=== PATIENT | male | born 1990 | race Caucasian/White ===

== ENCOUNTER 2025-03-07 11:46 | Emergency (ER) | payer OTHER, SELFPAY ==
[2025-03-07 11:55] VITALS: BP 132/70; PULSE 74; RESP 16; TEMP 36.5; O2SAT 96; BMI 28.1
--- NOTE | 2025-03-07 12:15 | ED.HEATRA ---
HPI - Head Injury <Adelia Cortez PA-C - Last Filed: 03/07/25 15:36> General Chief complaint: Head Injury Stated complaint: Head Injury, Dizzyness Time Seen by Provider: 03/07/25 12:08 Source: patient Mode of arrival: Ambulatory History of Present Illness HPI Narrative: This is a 34-year-old male presenting with concern for head injury. Patient states he was playing with his 3-year-old son and was using the monkey bars at 11 a.m. this morning. He was wearing a baseball cap and was swinging up to a platform that his son was on his arms were in front of him holding a bar and he did not realize there was another bar in between his head in the bar he was holding. As he was swinging he hit the top and front his head really hard. He states that he thought he saw black for just a second and immediately dropped to the ground but had no loss of consciousness and was alert as he was dropping to the ground and landed on the ground. He said that he felt okay but decided to go home and rest. Then when he was at home he felt what he describes as a swimmy sensation in his head with some pressure behind his ears and a pressure feeling in the front of his upper nose. 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 He states he has not had any difficulty walking, difficulty with coordination, he has not had any vomiting or vision change he does not feel that his eyes are sensitive to light. His swimming sensation/dizzy sensation did not persist. He denies a headache. He does state that he had multiple moderate concussions when he was younger due to playing football. Denies numbness or tingling of the extremties and also denies neck pain. Related Data Allergies Allergy/AdvReac Type Severity Reaction Status Date / Time No Known Drug Allergies Allergy Verified 03/07/25 11:56 Review of Systems <Adelia Cortez PA-C - Last Filed: 03/07/25 15:36> Review of Systems Narrative: See HPI Patient History <Adelia Cortez PA-C - Last Filed: 03/07/25 15:36> Social History Smoking Status: Never smoker Smoking Status: Never smoker Exam <Adelia Cortez PA-C - Last Filed: 03/07/25 15:36> Narrative Exam Narrative: GENERAL: 34 year old patient appears stated age. Well-developed patient, in mild distress. HEAD: There are erythematous abrasion to the crown anteriorly just behind the frontal bone. Slightly tender with very mild swelling present. Otherwise the head is Atraumatic. Normocephalic. EYES: Pupils equal round and reactive. Extraocular motions intact. No scleral icterus. No injection or drainage. ENT: Nose without bleeding, purulent drainage. Throat without erythema, tonsillar hypertrophy or exudate. Airway patent. Bilateral ear canals and TMs normal in appearance. No effusion or hemotympanum. NECK: Trachea midline. Non tender CARDIOVASCULAR: Regular rate and rhythm without murmurs, gallops, or rubs. RESPIRATORY: Clear to auscultation. Breath sounds equal bilaterally. No wheezes, rales, or rhonchi. GASTROINTESTINAL: Abdomen soft, non-tender, nondistended. EXTREMITIES: Equal bilateral upper extremity recovery collector. No edema or joint tenderness. BACK: There is no midline C-spine process tenderness step-off or deformity. Nontender without deformity or crepitance. No flank tenderness. NEURO: AOx3. Cranial nerves 2-12 intact. Sensation intact in bilateral upper extremities. SKIN: No rash or erythema of visible areas Initial Vital Signs Initial Vital Signs: Vital Signs Temperature 97.7 F 03/07/25 11:55 Pulse Rate 74 03/07/25 11:55 Respiratory Rate 16 03/07/25 11:55 Blood Pressure 132/70 03/07/25 11:55 Pulse Oximetry 96 03/07/25 11:55 Oxygen Delivery Method Room Air 03/07/25 11:55 <Ernestine Cornell MD - Last Filed: 03/07/25 19:33> Initial Vital Signs Initial Vital Signs: Vital Signs Temperature 97.7 F 03/07/25 11:55 Pulse Rate 74 03/07/25 11:55 Respiratory Rate 16 03/07/25 11:55 Blood Pressure 132/70 03/07/25 11:55 Pulse Oximetry 96 03/07/25 11:55 Oxygen Delivery Method Room Air 03/07/25 11:55 Scores <Adelia Cortez PA-C - Last Filed: 03/07/25 15:36> [place] CT Head Rule Age <16 years old: No Patient on blood thinners: No Seizure after injury: No Exclusion: Patient NOT Excluded, Proceed to next steps GCS < 15 at 2 hr post trauma: No Suspected open or depressed skull fracture: No Any sign of basilar skull fracture (hemotympanum, raccoon eyes, Romero's sign, CSF julius-/rhinorrhea): No Two or more episodes of vomiting: No Age greater or equal to 65 years: No Retrograde amnesia to the event greater or equal to 30 min: No Dangerous Mechanism (pedestrian vs. mv, occupant ejected from mv, fall from >3 ft or > 5 stairs): No Recommendation: CT unnecessary Nexus Score for C-Spine Focal Neurologic deficit present: No Midline spinal tenderness present: No Altered level of conciousness present: No Intoxication present: No Distracting Injury Present: No Nexus Criteria for C-spine: 0 <Ernestine Cornell MD - Last Filed: 03/07/25 19:33> [place] CT Head Rule Exclusion: Patient NOT Excluded, Proceed to next steps Recommendation: CT unnecessary Nexus Score for C-Spine Nexus Criteria for C-spine: 0 Course <Adelia Cortez PA-C - Last Filed: 03/07/25 15:36> Vital Signs Vital signs: Vital Signs - 8 hr 03/07/25 11:55 Temperature 97.7 F Pulse Rate 74 Respiratory Rate 16 Blood Pressure 132/70 Pulse Oximetry 96 Oxygen Delivery Method Room Air <Ernestine Cornell MD - Last Filed: 03/07/25 19:33> Vital Signs Vital signs: Vital Signs - 8 hr 03/07/25 11:55 Temperature 97.7 F Pulse Rate 74 Respiratory Rate 16 Blood Pressure 132/70 Pulse Oximetry 96 Oxygen Delivery Method Room Air MDM - Head Injury <Adelia Cortez PA-C - Last Filed: 03/07/25 15:36> Differential Diagnosis Differential diagnosis: Likely concussion without loss of consciousness Treatment and disposition Shared decision making:: Shared decision-making was used in determining plan for evaluation today in the emergency department and the decision to not perform a CT scan MDM Narrative Medical decision making narrative: 34-year-old male presents with concern for hitting his head on the mid-anterior crown on monkey bars as he was swinging from them today. He has no midline C-spine process tenderness step-off or deformity with normoactive range of motion of the neck. Abrasion present at the site of impact with the monkey bar. No loss of consciousness and cranial nerves are intact. He has not had vomiting does not have headache vision changes or photosensitivity. Do suspect he may have a mild concussion as he did have some mild dizziness earlier today which prompted him to come in. Injury occurred approximately 1 hour prior to ED arrival. Based on [place] CT rule no indication for head CT. Patient's nexus score is 0. No indication for CT of the C-spine. Counseled the patient regarding return precautions and advised consider taking Tylenol for the next 24-48 hours, stay hydrated and make sure that he is resting. He will seek re-evaluation if he has new or worsening symptoms. Otherwise follow up with PCP as needed. Return precautions provided, follow-up plan discussed, all questions answered. Discharge Plan Departure Patient Disposition: Home Clinical Impression: Concussion without loss of consciousness Activity Restrictions/Additional Instructions: *You have been diagnosed with [mild concussion] *What to do: *Please continue to take your regular medications as directed. [ ] New medication prescriptions sent to your pharmacy: [ ] [ ] New medication written as a paper prescription [X ] No new medications given *Please follow up with your primary care provider in 2-3 days, call for an appointment. Let them know you were seen in the Emergency Department and that we ask that you be seen in follow up. We will electronically transmit a record of today's note if your PCP is in our system. You came in today with concern for hitting her head earlier this morning with some pressure sensation and dizziness/swimmy sensation afterwards. Your exam today looks good. you do not have any neurologic deficits and it is probable you have a very mild concussion but at this time there is no indication for advanced imaging with CT scan as the risk of internal bleeding or problem in the brain is extremely low and a risk of radiation outweighs that of evaluating with advanced imaging. It was important to monitor your symptoms carefully over the next few days even up to the next 7 days. If you have severe headache, vision change, repetitive vomiting or other new symptoms of concern please make sure you seek re-evaluation. Otherwise you can follow up with your PCP as needed, try Tylenol and get plenty of rest it was okay to ice the area where you hit your head on and off for up to 10-15 minutes at a time if this feels good. I hope that you feel better soon. *If you do not have a primary care provider please contact the [facility] Resource line at [phone]. They will ask some questions about your medical history and help get you set up with a doctor in the community. *Return to Emergency Department if you should have any new, worsening or concerning symptoms, such as [fever greater than 101 F, shaking chills, worsening pain, persistent vomiting or other bothersome symptoms] Referrals: Provider,Kirsten ZEE [Primary Care Provider, Family Practice] Stand Alone Forms: Patient Portal/API ED Sign-out <Ernestine Cornell MD - Last Filed: 03/07/25 19:33> Cosign ED Attending Cosignature Attestation: I was immediately available in the department for consultation throughout this patient's visit. Ernestine Cornell MD
== END 2025-03-07 12:52 | disposition home or self-care (01) ==
PROVIDERS: Emergency Provider Student in an Organized Health Care Education/Training Program
DX: S06.0X0A Concussion without loss of consciousness, initial encounter (principal); W18.09XA Striking against other object with subsequent fall, initial encounter
CPT/HCPCS: 99281